=== PATIENT | male | born 1995 | race Asian ===

== ENCOUNTER 2021-12-05 23:30 | Emergency (ER) | payer BC ==
[~2021-12-05] VITALS: Ht 172.7 cm; Wt 70.3 kg
[2021-12-05 23:41] VITALS: BP 123/85
--- NOTE | 2021-12-06 01:26 | NUR ---
Dr. Aranda examining patient.
--- NOTE | 2021-12-06 01:27 | NUR ---
Patient ambulated to bed 8.
[2021-12-06] MEDS ORDERED: METH4TAB27 PO (01:38)
[2021-12-06] MEDS ORDERED: BENZ150C2 PO (01:38)
[2021-12-06 01:45] VITALS: BP 123/85
--- NOTE | 2021-12-06 01:45 | NUR ---
Patient discharged with v/s stable. Written and verbal after care instructions given and explained. Patient verbalized understanding. Ambulatory with steady gait. All questions addressed prior to discharge. Advised to follow up with PMD.
[2021-12-06] MEDS ORDERED: predniSONE 20 MG TAB PO ONE (01:50)
[2021-12-06] MEDS ORDERED: predniSONE 20 MG TAB ONE (01:58)
== END 2021-12-06 01:46 | disposition home or self-care (01) ==
LOC: MED 23:30
DX: J20.8 Acute bronchitis due to other specified organisms (principal)
CPT/HCPCS: 99283; J7512